=== PATIENT | female | born 1995 | race Caucasian/White ===

== ENCOUNTER 2020-12-11 18:10 | Emergency (ER) | payer BC ==
[~2020-12-11] VITALS: Ht 172.7 cm; Wt 106.8 kg
[2020-12-11 18:38] VITALS: BP 124/79
[2020-12-11] MEDS ORDERED: TETanus/Pertussis (Acell)/Diphther VAC/PF (Tdap-Adult) 0.5ml syringe IMVAC ONE (19:35)
[2020-12-11] MEDS ORDERED: LIDOcaine 1% W/epiNEPHrine 1:200,000 10ml vial IJ ONE (19:35)
[2020-12-11] MEDS ORDERED: bacitracin 15gm ointment TP ONE (20:25)
== END 2020-12-11 20:48 | disposition home or self-care (01) ==
LOC: ER 18:10
DX: S51.812A Laceration without foreign body of left forearm, initial encounter (principal); Z20.3 Contact with and (suspected) exposure to rabies; X58.XXXA Exposure to other specified factors, initial encounter; Y93.89 Activity, other specified; Y92.89 Other specified places as the place of occurrence of the external cause; Y99.8 Other external cause status
CPT/HCPCS: 12002; 90471; 90715; 99283

== ENCOUNTER 2021-11-21 15:18 | Emergency (ER) | payer BC ==
[~2021-11-21] VITALS: Ht 175.3 cm; Wt 90.9 kg
[2021-11-21 16:26] LABS: BASOPHILS % (AUTO) 0.4 % (0-1); EOSINOPHILS # (AUTO) 0.2 X10'3 (0-0.9); EOSINOPHILS % (AUTO) 1.9 % (0-6); HEMATOCRIT 39.5 % (35.0-45.0); HEMOGLOBIN 13.2 g/dl (12.0-16.0); LYMPHOCYTES # (AUTO) 2.5 X10'3 (1.1-4.8); LYMPHOCYTES % (AUTO) 26.3 % (21-51); MEAN CORPUSCULAR HEMOGLOBIN 29.6 PG (27.0-31.0); MEAN CORPUSCULAR HGB CONC 33.5 g/dL (33.0-36.5); MEAN CORPUSCULAR VOLUME 88.4 FL (78-98); MEAN PLATELET VOLUME 8.4 FL (7.4-10.4); MONOCYTES # (AUTO) 0.7 X10'3 (0-0.9); NEUTROPHILS # (AUTO) 6.1 X10'3 (1.8-7.7); NEUTROPHILS % (AUTO) 64.4 % (42-75); PLATELET COUNT 279 X10'3 (140-440); RED BLOOD COUNT 4.46 X10'6 (4.20-5.60); RED CELL DISTRIBUTION WIDTH 12.8 % (11.5-14.5); WHITE BLOOD COUNT 9.5 X10'3 (4.5-11.0)
[2021-11-21 16:41] LABS: ALANINE AMINOTRANSFERASE 18 U/L (12-78); ALBUMIN 3.8 G/DL (3.4-5.0); ALBUMIN/GLOBULIN RATIO 1.1 (1.1-1.5); ALKALINE PHOSPHATASE 79 IU/L (46-116); ANION GAP 7 (8-16); ASPARTATE AMINO TRANSFERASE 11 U/L (10-37); BILIRUBIN,TOTAL 0.9 MG/DL (0.1-1.0); BLOOD UREA NITROGEN 7 MG/DL (7-18); BUN/CREATININE RATIO 9.6 (6.6-38.0); CALCIUM 8.6 MG/DL (8.5-10.1); CHLORIDE 105 MMOL/L (99-107); CREATININE 0.73 MG/DL (0.40-0.90); GLUCOSE 92 MG/DL (70-104); POTASSIUM 3.8 MMOL/L (3.5-5.1); SODIUM 139 MMOL/L (135-145); TOTAL CARBON DIOXIDE 27.1 MMOL/L (24-32); TOTAL PROTEIN 7.2 G/DL (6.4-8.2); eGFR > 90 ML/MIN
[2021-11-21 16:50] LABS: MAGNESIUM 2.1 MG/DL (1.5-2.4)
[2021-11-21 17:41] VITALS: BP 122/77
== END 2021-11-21 17:43 | disposition home or self-care (01) ==
LOC: ER 15:19
DX: R20.0 Anesthesia of skin (principal); R42 Dizziness and giddiness
CPT/HCPCS: 36415; 71045; 80053; 83735; 83880; 84484; 85025; 93005; 99285

== ENCOUNTER 2022-01-13 10:16 | Emergency (ER) | payer BC ==
[~2022-01-13] VITALS: Ht 172.7 cm; Wt 96.8 kg
[2022-01-13 10:22] VITALS: BP 144/80
[2022-01-13 11:17] LABS: BASOPHILS % (AUTO) 0.4 % (0-1); EOSINOPHILS # (AUTO) 0.1 X10'3 (0-0.9); EOSINOPHILS % (AUTO) 1.3 % (0-6); HEMATOCRIT 41.5 % (35.0-45.0); HEMOGLOBIN 14.1 g/dl (12.0-16.0); LYMPHOCYTES # (AUTO) 1.6 X10'3 (1.1-4.8); LYMPHOCYTES % (AUTO) 18.9 % (21-51); MEAN CORPUSCULAR HEMOGLOBIN 30.2 PG (27.0-31.0); MEAN CORPUSCULAR HGB CONC 33.9 g/dL (33.0-36.5); MEAN CORPUSCULAR VOLUME 89.1 FL (78-98); MEAN PLATELET VOLUME 8.8 FL (7.4-10.4); MONOCYTES # (AUTO) 0.6 X10'3 (0-0.9); MONOCYTES % (AUTO) 6.8 % (2-12); NEUTROPHILS # (AUTO) 6.2 X10'3 (1.8-7.7); NEUTROPHILS % (AUTO) 72.6 % (42-75); PLATELET COUNT 263 X10'3 (140-440); RED BLOOD COUNT 4.66 X10'6 (4.20-5.60); RED CELL DISTRIBUTION WIDTH 12.9 % (11.5-14.5); WHITE BLOOD COUNT 8.5 X10'3 (4.5-11.0)
[2022-01-13 11:34] LABS: ALANINE AMINOTRANSFERASE 18 U/L (12-78); ALBUMIN 4.3 G/DL (3.4-5.0); ALBUMIN/GLOBULIN RATIO 1.1 (1.1-1.5); ALKALINE PHOSPHATASE 74 IU/L (46-116); ANION GAP 11 (8-16); ASPARTATE AMINO TRANSFERASE 17 U/L (10-37); BILIRUBIN,TOTAL 0.8 MG/DL (0.1-1.0); BLOOD UREA NITROGEN 5 MG/DL (7-18); BUN/CREATININE RATIO 6.6 (6.6-38.0); CALCIUM 9.2 MG/DL (8.5-10.1); CHLORIDE 105 MMOL/L (99-107); CREATININE 0.76 MG/DL (0.40-0.90); GLUCOSE 98 MG/DL (70-104); POTASSIUM 3.5 MMOL/L (3.5-5.1); SODIUM 140 MMOL/L (135-145); TOTAL CARBON DIOXIDE 23.7 MMOL/L (24-32); TOTAL PROTEIN 8.2 G/DL (6.4-8.2); eGFR > 90 ML/MIN
[2022-01-13] MEDS ORDERED: LORazepam 1 MG tablet PO ONE (11:35)
== END 2022-01-13 11:53 | disposition home or self-care (01) ==
LOC: ER 10:16
DX: F41.9 Anxiety disorder, unspecified (principal)
CPT/HCPCS: 36415; 71045; 80053; 83880; 84484; 85025; 93005; 99284; 99285

== ENCOUNTER 2022-04-15 04:42 | Emergency (ER) | payer BC ==
[~2022-04-15] VITALS: Ht 172.7 cm; Wt 95.5 kg
[2022-04-15 05:47] LABS: BASOPHILS % (AUTO) 0.2 % (0-1); EOSINOPHILS # (AUTO) 0.2 X10'3 (0-0.9); EOSINOPHILS % (AUTO) 2.2 % (0-6); HEMATOCRIT 42.2 % (35.0-45.0); HEMOGLOBIN 14.4 g/dl (12.0-16.0); LYMPHOCYTES # (AUTO) 2.2 X10'3 (1.1-4.8); LYMPHOCYTES % (AUTO) 21.7 % (21-51); MEAN CORPUSCULAR HEMOGLOBIN 30.1 PG (27.0-31.0); MEAN CORPUSCULAR HGB CONC 34.1 g/dL (33.0-36.5); MEAN CORPUSCULAR VOLUME 88.3 FL (78-98); MONOCYTES # (AUTO) 0.6 X10'3 (0-0.9); MONOCYTES % (AUTO) 5.8 % (2-12); NEUTROPHILS % (AUTO) 70.1 % (42-75); PLATELET COUNT 218 X10'3 (140-440); RED BLOOD COUNT 4.79 X10'6 (4.20-5.60); RED CELL DISTRIBUTION WIDTH 13.1 % (11.5-14.5)
--- NOTE | 2022-04-15 05:57 | NUR ---
pt belongings in [place] [id number]
[2022-04-15 06:00] LABS: ALANINE AMINOTRANSFERASE 24 U/L (12-78); ALBUMIN 4.2 G/DL (3.4-5.0); ALBUMIN/GLOBULIN RATIO 1.1 (1.1-1.5); ALKALINE PHOSPHATASE 75 IU/L (46-116); ANION GAP 8 (8-16); ASPARTATE AMINO TRANSFERASE 16 U/L (10-37); BILIRUBIN,TOTAL 0.6 MG/DL (0.1-1.0); BLOOD UREA NITROGEN 9 MG/DL (7-18); BUN/CREATININE RATIO 12.5 (6.6-38.0); CHLORIDE 106 MMOL/L (99-107); CREATININE 0.72 MG/DL (0.40-0.90); GLUCOSE 109 MG/DL (70-104); POTASSIUM 3.2 MMOL/L (3.5-5.1); SODIUM 141 MMOL/L (135-145); eGFR > 90 ML/MIN
[2022-04-15 06:11] LABS: CLARITY,URINE SLIGHTLY CLOUDY (Clear); COLOR,URINE YELLOW (Yellow); GLUCOSE, URINE NEGATIVE (Neg); KETONES,URINE NEGATIVE (Neg); LEUKOCYTE ESTERASE ,URINE NEGATIVE (Neg); NITRITES, URINE NEGATIVE (Neg); OCCULT BLOOD,URINE NEGATIVE (Neg); PROTEIN,URINE NEGATIVE (Neg); UROBILINOGEN,URINE 0.2 E.U/dL (0.2-1.0)
[2022-04-15 06:12] LABS: URINE HCG NEGATIVE (NEG)
[2022-04-15] MEDS ORDERED: NO HOME MEDS (06:19)
[2022-04-15 06:20] LABS: ETHANOL < 0.010 GM/DL (0.0-0.010)
[2022-04-15 06:32] LABS: UA COLLECTION TYPE VOIDED
[2022-04-15 06:34] LABS: BACTERIA,URINE FEW /HPF (Neg); RBC,URINE NONE SEEN /HPF (0-2); SQUAMOUS EPITHELIAL CELL,UR MANY /LPF (FEW)
[2022-04-15 06:35] LABS: MUCUS STRANDS MANY /LPF (Neg)
[2022-04-15 06:41] LABS: URINE AMPHETAMINE SCREEN NEGATIVE (Neg); URINE BARBITUATE SCREEN NEGATIVE (Neg); URINE BENZODIAZEPINES SCREEN NEGATIVE (Neg); URINE CANNABINOID SCREEN NEGATIVE (Neg); URINE COCAINE SCREEN NEGATIVE (Neg); URINE METHADONE SCREEN NEGATIVE (Neg); URINE OPIATE SCREEN NEGATIVE (Neg); URINE PHENCYCLIDINE SCREEN NEGATIVE (Neg)
--- NOTE | 2022-04-15 06:45 | NUR ---
Assumed care of patient. Pt ambulated independently from main ED to OF bed #23. Pt was calm/cooperative. Pt given warm blanket.
[2022-04-15] MEDS ORDERED: POTASSIUM BICARB 20meq eff tab 20 MEQ TABLET.EFF PO ONE (07:55)
--- NOTE | 2022-04-15 08:00 | NUR ---
Faxed Packet to [facility]
--- NOTE | 2022-04-15 09:00 | NUR ---
Pt resting comfortably, rr even and unlabored.
--- NOTE | 2022-04-15 09:30 | NUR ---
Potassium was 3.2 and was replaced with oral potassium bicarb 20 meq.
--- NOTE | 2022-04-15 10:55 | NUR ---
One on one with patient to assess suicidal thoughts. Pt was awake and presented with a depressed affect. Pt was tearful throughout assessment. Pt states "I don't like being alone with my thoughts." Pt endorses SI without a plan "I havne't worked that out...yet." Pt states its not just r/t ex-boyfriend "its more complicated then that." Pt denies A/VH. No hx of SA or PHF placements. Pt has no home medications. Pt states she has family support, but does not feel safe going home.
--- NOTE | 2022-04-15 11:30 | NUR ---
Pt's mom and aunt are at bedside. Pt continues to tearful, conversation is appropriated. Family brought crayons, notebook and color book.
[2022-04-15] MEDS ORDERED: acetaminophen 325mg tablet PO ONE (12:45)
--- NOTE | 2022-04-15 13:30 | NUR ---
Pt resting comfortably, rr even and unlabored.
--- NOTE | 2022-04-15 15:23 | NUR ---
Pt was accepted to [facility] [phone]. Nurse to nurse completed with Marti.
--- NOTE | 2022-04-15 15:42 | NUR ---
Pt resting comfortably on her bed. Pt is waiting transport to [facility].
--- NOTE | 2022-04-15 16:29 | NUR ---
DISCHARGE NOTE Patient was dishcharged from unit at 1610. Pt was transported via [facility] to [facility]. Pt was A&O. Pt had weather appropriate clothing. Pt was tearful, but grateful she was getting help. Pt left with all personal belongings, which were given to shuttle van driver. Original 5150 was given to shuttle van driver.
[2022-04-15 16:33] VITALS: BP 130/89
== END 2022-04-15 16:10 ==
LOC: ER 04:43
DX: F41.9 Anxiety disorder, unspecified (principal); Z20.822 Contact with and (suspected) exposure to COVID-19; F32.A Depression, unspecified; F14.10 Cocaine abuse, uncomplicated
CPT/HCPCS: 36415; 80053; 80305; 80320; 81001; 81025; 84443; 85025; 87811; 99285

== ENCOUNTER 2024-08-25 23:46 | Emergency (ER) | payer BC, MEDICAID ==
[~2024-08-25] VITALS: Ht 172.7 cm; Wt 100.8 kg
[~2024-08-25 23:46] MED LIST: NO HOME MEDS
[2024-08-25 23:54] VITALS: BP 109/76; PULSE 79; RESP 17; TEMP 98.4; O2SAT 96
[2024-08-26] MEDS ORDERED: HYDR-3686 PO (01:12)
[2024-08-26] MEDS: hydrOXYzine 25 MG tablet PO ONE (01:18)
== END 2024-08-26 01:21 | disposition home or self-care (01) ==
LOC: ER 23:47
DX: F41.0 Panic disorder [episodic paroxysmal anxiety] (principal); F14.90 Cocaine use, unspecified, uncomplicated
CPT/HCPCS: 99283; Q0177